=== PATIENT | male | born 1965 | race Caucasian/White ===

== ENCOUNTER 2017-01-08 08:00 | Observation (INO) | payer BC ==
[~2017-01-08] VITALS: Ht 185.4 cm; Wt 82.9 kg
[~2017-01-08 08:00] MED LIST: FLUT0.15 NAE
[2017-01-08 08:41] LABS: BASO % 0.2 %; BASO ABS # 0.01 K/uL (0-0.2); COMPLETE YES; EOS % 1.7 %; HEMATOCRIT 40.9 % (42-52); IG% 0.2 %; LYMPH % 21.2 %; LYMPH ABS # 1.37 K/uL (1.2-3.4); MEAN CELL VOLUME 85.9 fL (80-100); MEAN PLATELET VOLUME 10.8 fL (7.4-10.4); MONO % 11.8 %; NEUT % 64.9 %; PLATELET COUNT 173 K/uL (130-400); RED BLOOD COUNT 4.76 M/uL (4.7-6.1); WHITE BLOOD COUNT 6.46 K/uL (4.8-10.8)
[2017-01-08 08:56] LABS: MANUAL MICROSCOPIC REQUIRED? NO; URINE APPEARANCE CLEAR (CLEAR); URINE BILIRUBIN NEG (NEG); URINE COLOR YELLOW; URINE NITRITE NEG (NEG); UROBILINOGEN NEG (NEG)
[2017-01-08 08:57] LABS: REVIEW REQ? NO
[2017-01-08 08:58] LABS: BUN/CREATININE RATIO 11.8 (10-20); CALCIUM 9.4 mg/dl (8.5-10.1); CREATININE 1.1 mg/dl (0.60-1.40); POTASSIUM 3.8 mmol/L (3.5-5.1)
--- NOTE | 2017-01-08 09:02 | DIAGNOSTIC IMAGING REPORT ---
CT OF THE HEAD WITHOUT CONTRAST CLINICAL HISTORY: Lightheadedness with collapse. COMPARISON STUDY: No previous studies for comparison. CT DOSE: 614.27 mGy.cm TECHNIQUE: Helical axial images of the head were obtained without IV contrast. Automated exposure control was utilized for the study. FINDINGS: No acute intracranial hemorrhage, midline shift or mass effect is present. Ventricular system is normal. Basilar cisterns are patent. There are no extra-axial collections. Mohan-white differentiation is maintained. There are no findings to suggest acute dural sinus thrombosis or acute territorial infarct. There is no calvarial fracture. Visualized portions of the sinuses and mastoid air cells are clear. IMPRESSION: No acute intracranial findings. Electronically signed by: Domingo Gipson M.D. 01/08/2017 9:01 AM Dictated Date/Time: 01/08/2017 8:58 AM
--- NOTE | 2017-01-08 09:02 | DIAGNOSTIC IMAGING REPORT ---
CHEST ONE VIEW PORTABLE HISTORY: 51 years Male lightheadness with collapse COMPARISON: 09/12/2015. TECHNIQUE: Portable upright AP view of the chest FINDINGS: Cardiomediastinal and hilar silhouettes are within normal limits. There is no pneumothorax, pleural effusion or focal airspace consolidation. Mild pleural parenchymal scarring of the right lung apex is redemonstrated. There is no overt pulmonary edema. The bones are grossly intact. IMPRESSION: No acute cardiopulmonary process. The above report was generated using voice recognition software. It may contain grammatical, syntax or spelling errors. Electronically signed by: Charlie Santos M.D. 01/08/2017 9:00 AM Dictated Date/Time: 01/08/2017 8:54 AM
[2017-01-08 09:08] LABS: THYROID STIMULATING HORMONE 2.84 uIu/ml (0.300-4.500)
--- NOTE | 2017-01-08 10:35 | EMERGENCY ROOM VISIT NOTE ---
ED Visit Note First contact with patient: 08:11 51-year-old male with 2 near-syncopal episodes over the past 2 days. Patient has an unremarkable past medical history. The patient was fully evaluated by Gideon Denny PA-C. Please see his note. I also independently evaluated the patient. Multiple labs, EKG and imaging were evaluated. The patient will require further evaluation in the hospital.
[2017-01-08] MEDS ORDERED: ACETAMINOPHEN 325 MG TAB PO PRN (11:45)
[2017-01-08] MEDS ORDERED: PHARMACIST DISCHARGE MED REC CONSULT PRN (11:45)
[2017-01-08 12:30] VITALS: O2SAT 96; Ht 185.4 cm; Wt 82.9 kg
[2017-01-08] MEDS ORDERED: IV FLUIDS COMPLETED PRN (12:45)
--- NOTE | 2017-01-08 12:56 | History and Physical ---
History & Physical Date & Time of Service: Jan 08, 2017 at 10:34 Chief Complaint: Lightheaded, Dizzy Primary Care Physician: No Doctor, Assigned History of Present Illness Source: patient, family This pt is a 51 yo male with a h/o a Dieulafoy lesion with GI bleed in 08/2015 requiring PRBC transfusion and endoscopic clipping, who presents with 1 day of lightheadedness and dizziness with some room spinning with standing and collapse to the ground on several occasions. 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 His girlfriend states he was talking to her through the episode but did have some trouble finding words. He reports at that time it took him about 15 min to get back up as his whole body felt very fatigued, no focal weakness. Since then, every time he stands or sits up, he feels lightheaded and dizzy. He then had another episode this AM upon getting out of bed where he fell to the floor but again did not pass out. No nausea/ vomiting. He denies chest pain or palpitations, no GI bleeding he is aware of. 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 No fevers. He has felt some generalized fatigue for the last week as well. He has a 4/10 frontal headache that started this morning, as well as some mild tinnitus since last night. No hearing loss. He does have a h/o LBP and neck pain with left arm and leg radiculopathy and is currently seeing a Chiropractor for this through workman's comp--> he does get manipulation of his neck at times but can't recall if he received this at his last Chiropractor visit last week. Labs including CBC, CMP, TSH, troponin in ER were all normal. CXR and Head CT were negative for acute issues, ECG without arrhythmia or signs of ischemia. Orthostatics were negative but he did feel lightheaded when they were performed. He will be admitted for overnight observation to ensure no CVA, no acute occult GI bleeding given h/o massive GI bleed previously, and to r/o cardiac causes of near syncope. Past Medical/Surgical History PMH: Dieulafoy lesion in stomach with massive GI bleed 08/2015 Lower back pain with left lower extremity radiculopathy Chronic cervicalgia with LUE radiculopathy PSH: Discectomy lumbar spine Family History FH: HTN (hypertension) FH: diabetes mellitus FHx: prostate cancer Father-HTN, prostate CA, DMII, [place] in his 50s, pacemaker Mother- from brain CA Sister-DM Brother-prediabetes Social History Smoking Status: Never Smoker Alcohol Use: occasionally (1 beer per month) Drug Use: none Marital Status: in relationship Housing status: lives with significant other (with girlfriend and her children) 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) Multi-Drug Resistant Organisms History of MDRO: No Allergies Coded Allergies: Penicillins (Verified Allergy, Unknown, HAPPENED AT CHILD, 01/08/17) Home Medications No Active Prescriptions or Reported Meds Review of Systems Constitutional: + fatigue, No fever, No chills Eyes: No worsening of vision, No diplopia ENT: + tinnitus, No hearing loss Respiratory: No shortness of breath, No hemoptysis Cardiovascular: No chest pain, No edema, No palpitations Abdomen: No pain, No nausea, No vomiting, No diarrhea, No constipation, No GI bleeding Musculoskeletal: + problem reported (chronic neck and lower back pain), No joint pain Genitourinary - Male: No problem reported Neurologic: + weakness (generalized), + numbness/tingling (intermittently in LUE and LLE for months) Psychiatric: No problem reported Endocrine: + fatigue Hematologic / Lymphatic: No problem reported Integumentary: No rash Allergic / Immunologic: No problem reported Physical Exam Vital Signs Date Time Temp Pulse Resp B/P (MAP) Pulse Ox O2 Delivery O2 Flow Rate FiO2 01/08/17 10:01 118/69 01/08/17 10:00 58 15 96 01/08/17 09:31 122/74 01/08/17 09:30 60 13 97 01/08/17 09:01 112/70 01/08/17 09:00 63 21 118/70 98 01/08/17 08:30 64 14 97 01/08/17 08:15 71 134/70 67 132/73 79 142/78 01/08/17 08:14 72 01/08/17 08:13 142/78 01/08/17 08:04 36.5 71 18 129/77 100 Room Air General Appearance: WD/WN, no apparent distress, + thin Head: normocephalic, atraumatic Eyes: normal inspection, PERRL, EOMI (with nystagmus in all directions), sclerae normal ENT: normal ENT inspection, hearing grossly normal, TMs normal, pharynx normal Neck: supple, no adenopathy, thyroid normal, no JVD, no carotid bruits, trachea midline Respiratory/Chest: lungs clear, normal breath sounds, no respiratory distress, no accessory muscle use Cardiovascular: regular rate, rhythm, no edema, no gallop, no JVD, no murmur, normal peripheral pulses Abdomen/GI: normal bowel sounds, non tender, soft, no organomegaly, no pulsatile mass Back: normal inspection Extremities/Musculoskelatal: normal inspection, no calf tenderness, normal capillary refill, no pedal edema 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: 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, no motor/sensory deficits, alert, normal mood/affect, normal reflexes, oriented x 3, + pertinent finding (normal finger to nose, heel to leslie, rapid alternating hands all normal, Romberg +, Gait not tested) Skin: normal color, warm/dry, no rash (except crmup angiomas on abdomen) Lymphatic: no adenopathy Diagnostics Laboratory Results Results Past 24 Hours Test 01/08/17 08:20 01/08/17 08:44 01/08/17 08:48 Range/Units White Blood Count 6.46 4.8-10.8 K/uL Red Blood Count 4.76 4.7-6.1 M/uL Hemoglobin 14.3 14.0-18.0 g/dL Hematocrit 40.9 42-52 % Mean Corpuscular Volume 85.9 80-100 fL Mean Corpuscular Hemoglobin 30.0 25-34 pg Mean Corpuscular Hemoglobin Concent 35.0 32-36 g/dl Platelet Count 173 130-400 K/uL Mean Platelet Volume 10.8 7.4-10.4 fL Neutrophils (%) (Auto) 64.9 % Lymphocytes (%) (Auto) 21.2 % Monocytes (%) (Auto) 11.8 % Eosinophils (%) (Auto) 1.7 % Basophils (%) (Auto) 0.2 % Neutrophils # (Auto) 4.20 1.4-6.5 K/uL Lymphocytes # (Auto) 1.37 1.2-3.4 K/uL Monocytes # (Auto) 0.76 0.11-0.59 K/uL Eosinophils # (Auto) 0.11 0-0.5 K/uL Basophils # (Auto) 0.01 0-0.2 K/uL RDW Standard Deviation 41.9 36.4-46.3 fL RDW Coefficient of Variation 13.3 11.5-14.5 % Immature Granulocyte % (Auto) 0.2 % Immature Granulocyte # (Auto) 0.01 0.00-0.02 K/uL Sodium Level 139 136-145 mmol/L Potassium Level 3.8 3.5-5.1 mmol/L Chloride Level 106 98-107 mmol/L Carbon Dioxide Level 27 21-32 mmol/L Anion Gap 6.0 3-11 mmol/L Blood Urea Nitrogen 13 7-18 mg/dl Creatinine 1.10 0.60-1.40 mg/dl Est Creatinine Clear Calc Drug Dose 90.8 ml/min Estimated GFR () 90.2 Estimated GFR (Non- 77.9 BUN/Creatinine Ratio 11.8 10-20 Random Glucose 97 70-99 mg/dl Calcium Level 9.4 8.5-10.1 mg/dl Total Bilirubin 0.6 0.2-1 mg/dl Direct Bilirubin 0.1 0-0.2 mg/dl Aspartate Amino Transf (AST/SGOT) 27 15-37 U/L Alanine Aminotransferase (ALT/SGPT) 46 12-78 U/L Alkaline Phosphatase 80 45-117 U/L Total Protein 7.5 6.4-8.2 gm/dl Albumin 3.6 3.4-5.0 gm/dl Thyroid Stimulating Hormone (TSH) 2.840 0.300-4.500 uIu/ml Bedside Troponin I < 0.030 0-0.045 ng/ml Urine Color YELLOW Urine Appearance CLEAR CLEAR Urine pH 7.0 4.5-7.5 Urine Specific [place] 1.010 1.000-1.030 Urine Protein NEG NEG Urine Glucose (UA) NEG NEG Urine Ketones NEG NEG Urine Occult Blood NEG NEG Urine Nitrite NEG NEG Urine Bilirubin NEG NEG Urine Urobilinogen NEG NEG Urine Leukocyte Esterase NEG NEG Diagnostic Radiology All images personally reviewed by ga CHEST ONE VIEW PORTABLE HISTORY: 51 years Male lightheadness with collapse COMPARISON: 09/12/2015. TECHNIQUE: Portable upright AP view of the chest FINDINGS: Cardiomediastinal and hilar silhouettes are within normal limits. There is no pneumothorax, pleural effusion or focal airspace consolidation. Mild pleural parenchymal scarring of the right lung apex is redemonstrated. There is no overt pulmonary edema. The bones are grossly intact. IMPRESSION: No acute cardiopulmonary process. CT OF THE HEAD WITHOUT CONTRAST CLINICAL HISTORY: Lightheadedness with collapse. COMPARISON STUDY: No previous studies for comparison. CT DOSE: 614.27 mGy.cm TECHNIQUE: Helical axial images of the head were obtained without IV contrast. Automated exposure control was utilized for the study. FINDINGS: No acute intracranial hemorrhage, midline shift or mass effect is present. Ventricular system is normal. Basilar cisterns are patent. There are no extra-axial collections. Mohan-white differentiation is maintained. There are no findings to suggest acute dural sinus thrombosis or acute territorial infarct. There is no calvarial fracture. Visualized portions of the sinuses and mastoid air cells are clear. IMPRESSION: No acute intracranial findings. EKG Sinus bradycardia, possible LVH, no ischemic changes Impression Assessment and Plan This pt is a 51 yo male with a h/o a Dieulafoy lesion with GI bleed in 08/2015 requiring PRBC transfusion and endoscopic clipping, who presents with 1 day of lightheadedness and dizziness with some room spinning with standing and collapse to the ground on several occasions. 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 His girlfriend states he was talking to her through the episode but did have some trouble finding words. He reports at that time it took him about 15 min to get back up as his whole body felt very fatigued, no focal weakness. Since then, every time he stands or sits up, he feels lightheaded and dizzy. He then had another episode this AM upon getting out of bed where he fell to the floor but again did not pass out. No nausea/ vomiting. He denies chest pain or palpitations, no GI bleeding he is aware of. 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 No fevers. He has felt some generalized fatigue for the last week as well. He has a 4/10 frontal headache that started this morning, as well as some mild tinnitus since last night. No hearing loss. He does have a h/o LBP and neck pain with left arm and leg radiculopathy and is currently seeing a Chiropractor for this through workman's comp--> he does get manipulation of his neck at times but can't recall if he received this at his last Chiropractor visit last week. Labs including CBC, CMP, TSH, troponin in ER were all normal. CXR and Head CT were negative for acute issues, ECG without arrhythmia or signs of ischemia. Orthostatics were negative but he did feel lightheaded when they were performed. He will be admitted for overnight observation to ensure no CVA, no acute occult GI bleeding given h/o massive GI bleed previously, and to r/o cardiac causes of near syncope. Dizziness, fatigue--> Does have nystagmus on exam but mixed picture between vertigo and near-syncope based on symptoms alone, with normal orthostatics. The differential includes TIA/CVA, BPPV, cardiac arrhythmia, Lyme disease, or early occult GI bleed. He has been seeing a Chiropractor and had neck high velocity manipulation which can lead to dissection and CVA -Check MRI brain, MRA head, Carotid Doppler US -Neuro checks -check Lyme titer -neurology consultation appreciated -check ECHO and monitor on telemetry -trend troponin -Appreciate Cardiology consultation, may need halfway event monitoring if no clear etiology for his symptoms is discovered this admission -repeat CBC with next troponin given h/o massive GI bleed and high risk of recurrence with Dieulafoy lesions -holding off on ASA for now unless confirmed CVA due to h/o massive GI bleed and high risk of recurrence Chronic neck and lower back pain with radiculopathy-no focal neuro deficits on exam today -continue f/u as outpt Proph-SCDs only given h/o GI bleeding Dispo-PT/OT evals, hopefully to home in 1-2 days after workup complete and safe with ambulation Needs Nurse Navigator to assist with finding a PCP that takes his insurance Level of Care Telemetry Resuscitation Status FULL RESUSCITATION VTE Prophylaxis VTE Risk Assessment Done? Y/N: Yes Risk Level: Low Given or contraindicated: SCD's Social Service Consult None Apply
--- NOTE | 2017-01-08 13:40 | DIAGNOSTIC IMAGING REPORT ---
MR ANGIOGRAPHY OF THE [place] NO CONTRAST CLINICAL HISTORY: Stroke, dizziness, lightheadedness. Headache. COMPARISON STUDY: None. A 3-D [id number] MR angiographic sequence of the [place] was performed. Both the source and projection images were reviewed. There is no evidence of major intracranial branch occlusion. There is no evidence of intracranial stenosis. There are no lesions suspicious for aneurysm. IMPRESSION: Unremarkable MR angiography of the [place]. Electronically signed by: Todd Saldivar M.D. 01/08/2017 1:39 PM Dictated Date/Time: 01/08/2017 1:37 PM
[2017-01-08] MEDS ORDERED: GADAVIST IV PRN (13:45)
[2017-01-08 13:51] LABS: ESTIMATED AVERAGE GLUCOSE 126 mg/dl; HA1C FLAG Normal (Normal)
--- NOTE | 2017-01-08 13:57 | DIAGNOSTIC IMAGING REPORT ---
MRI OF THE BRAIN WITHOUT AND WITH IV CONTRAST CLINICAL HISTORY: Evaluate for stroke. Lightheaded. Dizzy. COMPARISON STUDY: Head CT January 08, 2017. TECHNIQUE: Utilizing a 1.5 Sheree magnet and dedicated coil, multiplanar, multiecho imaging of the brain was performed pre and postcontrast administration. IV administration of 7.7 mL of Gadavist contrast was uneventful. FINDINGS: There are no areas of restricted diffusion. No acute intracranial hemorrhage, midline shift or mass effect is present. Brain volume is normal. Ventricular system is normal. Basilar cisterns are patent. There are no extra axial collections. Flow-voids for the major intracranial vessels are present. There are no intracranial masses or areas of pathologic enhancement. Scattered small white matter T2 hyperintense foci suggest minimal small vessel disease. Calvarial signal is normal. Orbits are unremarkable. There is no fluid within the mastoid air cells. No abnormalities are identified within the internal auditory canals on this nondedicated exam. IMPRESSION: 1. No acute intracranial findings. 2. No intracranial mass or pathologic enhancement. 3. Minimal small vessel disease. Electronically signed by: Domingo Gipson M.D. 01/08/2017 1:56 PM Dictated Date/Time: 01/08/2017 1:50 PM
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
[2017-01-08 14:17] LABS: LYME DISEASE AB IGG NEG (NEG); LYME DISEASE AB IGM NEG (NEG)
[2017-01-08 14:30] VITALS: BP 151/75; PULSE 59; TEMP 36.5; O2SAT 100
[2017-01-08 15:25] VITALS: BP 123/76; PULSE 58; TEMP 36.4; O2SAT 100
--- NOTE | 2017-01-08 15:32 | EMERGENCY ROOM VISIT NOTE ---
ED Visit Note First contact with patient: 08:11 Chief Complaint: Dizziness. History of Present Illness: Mr. Stack is a 51-year-old white male who ambulates into the ED accompanied by his girlfriend complaining of dizziness. Historically patient reports he's had a previous GI bleed in 2016 without recurrence. Patient reports over the last 2-3 days he has been having generalized fatigue; he reports this is abnormal because usually he is very active and anxious to get his normal work done. 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 He reports when he attempted to stand he became lightheaded ankle lapsed onto the floor. His girlfriend observed this incident and reported he did not strike his head or have a loss of consciousness ball while on the floor his speech became slightly mumbled and he had difficulty finding words to communicate. He reports he also had difficulty getting up from the floor because he continued to have lightheadedness. Since that time he reports whenever he has positional changes from the lying to sitting or sitting to standing position he has a 10 to 20 second episode of lightheadedness and then he has full resolution of the lightheadedness. This morning while getting out of bed he had a similar episode of collapsing to the floor and had difficulty standing because of his lightheadedness. His girlfriend became very concerned and forced him to come to the hospital for further evaluation and care. He has not taken any medications for his symptoms and denies any associated symptoms including fevers, chills, sweats, skin eruptions, skin color changes, dizziness, visual changes, hearing changes, difficulty speaking, difficulty swallowing, difficulty ambulating/coordinating body movements, neck pain/ stiffness, recent upper respiratory tract symptoms, headache, chest pain, shortness of breath, palpitations, previous clots, claudication, cramping, recent surgery/inactivity/extended travel, extremity weakness/numbness/tingling , rectal bleeding, black/tarry stools, hematuria, urinary symptoms, easy bruising, easy bleeding. Review of Systems: As noted above in history of present illness. All body systems were reviewed and found to be negative as noted above. Past Medical History: As noted previously, unspecified heart murmur from a child , chronic neck and back pain. Current Medications: Patient denies. Allergies to Medications: Penicillin. Social History: Patient is currently employed; he lives with his girlfriend and feels safe in his home environment; he denies tobacco use and admits to social alcohol use. Physical Examination: Vital Signs: Date Time Temp Pulse Resp B/P (MAP) Pulse Ox O2 Delivery O2 Flow Rate FiO2 01/08/17 12:31 118/75 01/08/17 12:30 96 Room Air 01/08/17 12:15 72 01/08/17 12:11 62 20 01/08/17 12:06 63 22 01/08/17 12:01 126/77 01/08/17 11:36 64 01/08/17 11:31 116/70 01/08/17 11:06 66 18 01/08/17 11:01 137/77 01/08/17 10:36 63 15 01/08/17 10:06 57 16 96 01/08/17 10:01 118/69 01/08/17 10:00 58 15 96 01/08/17 09:31 122/74 01/08/17 09:30 60 13 97 01/08/17 09:01 112/70 01/08/17 09:00 63 21 118/70 98 01/08/17 08:30 64 14 97 01/08/17 08:15 71 134/70 67 132/73 79 142/78 01/08/17 08:14 72 01/08/17 08:13 142/78 01/08/17 08:04 36.5 71 18 129/77 100 Room Air Negative orthostatic vital signs. GENERAL: 51-year-old male in no acute distress, nontoxic-appearing, afebrile and hemodynamically stable. NEUROLOGICAL: Awake, alert and oriented to person, place and time. Answering questions appropriately and following commands. Normal gait. Good hand eye coordination. No focal motor or sensory deficits. Cranial nerves II through XII grossly intact. Normal rapid alternate movements of the hands and fingers. Good short-term and long-term recall. SKIN: Warm, dry and pink. No soft tissue eruptions or trauma noted. HEENT: Atraumatic and normocephalic. Skull: No bony deformity, bony tenderness , swelling or ecchymosis. No raccoon's eyes or jain signs. No drainage in the ears of the nostril; no hemotympanum. PERRLA. EOMI without nystagmus. Sclera white and conjunctiva pink. Oral cavity moist and pink. Airway patent. Pharynx is nonerythematous or edematous. Speech normal. No lymphadenopathy. Trachea midline. No jugular venous distention. No carotid bruits. BACK: No tenderness over the bony cervical, thoracic or lumbar spine. Full range of motion of the cervical spine. No CVA tenderness. THORAX: Lungs sounds are clear to auscultation and equal bilaterally with symmetrical chest wall. No wheezing, rales or rhonchi. No crepitus, tenderness , subcutaneous air or deformities noted. HEART: Regular rate and rhythm. No gallops, rubs or murmurs are appreciated. PMI is not displaced. No lifts, heaves or thrills. ABDOMEN: Flat, soft and nontender. Positive bowel sounds in all quadrants. No masses, guarding, rigidity or organomegaly. EXTREMITIES: Moves all extremities well on command and with purpose. All distal neurovascular statuses are intact and equal bilaterally. No calf tenderness or cords. ED Course: Patient is assessed as noted above. Patient's medications were reviewed. Laboratory Testing: Test 01/08/17 08:20 01/08/17 08:44 01/08/17 08:48 Range/Units White Blood Count 6.46 4.8-10.8 K/uL Red Blood Count 4.76 4.7-6.1 M/uL Hemoglobin 14.3 14.0-18.0 g/dL Hematocrit 40.9 42-52 % Mean Corpuscular Volume 85.9 80-100 fL Mean Corpuscular Hemoglobin 30.0 25-34 pg Mean Corpuscular Hemoglobin Concent 35.0 32-36 g/dl Platelet Count 173 130-400 K/uL Mean Platelet Volume 10.8 7.4-10.4 fL Neutrophils (%) (Auto) 64.9 % Lymphocytes (%) (Auto) 21.2 % Monocytes (%) (Auto) 11.8 % Eosinophils (%) (Auto) 1.7 % Basophils (%) (Auto) 0.2 % Neutrophils # (Auto) 4.20 1.4-6.5 K/uL Lymphocytes # (Auto) 1.37 1.2-3.4 K/uL Monocytes # (Auto) 0.76 0.11-0.59 K/uL Eosinophils # (Auto) 0.11 0-0.5 K/uL Basophils # (Auto) 0.01 0-0.2 K/uL RDW Standard Deviation 41.9 36.4-46.3 fL RDW Coefficient of Variation 13.3 11.5-14.5 % Immature Granulocyte % (Auto) 0.2 % Immature Granulocyte # (Auto) 0.01 0.00-0.02 K/uL Sodium Level 139 136-145 mmol/L Potassium Level 3.8 3.5-5.1 mmol/L Chloride Level 106 98-107 mmol/L Carbon Dioxide Level 27 21-32 mmol/L Anion Gap 6.0 3-11 mmol/L Blood Urea Nitrogen 13 7-18 mg/dl Creatinine 1.10 0.60-1.40 mg/dl Est Creatinine Clear Calc Drug Dose 90.8 ml/min Estimated GFR () 90.2 Estimated GFR (Non- 77.9 BUN/Creatinine Ratio 11.8 10-20 Random Glucose 97 70-99 mg/dl Estimated Average Glucose 126 mg/dl Hemoglobin A1c 6.0 4.5-5.6 % Calcium Level 9.4 8.5-10.1 mg/dl Total Bilirubin 0.6 0.2-1 mg/dl Direct Bilirubin 0.1 0-0.2 mg/dl Aspartate Amino Transf (AST/SGOT) 27 15-37 U/L Alanine Aminotransferase (ALT/SGPT) 46 12-78 U/L Alkaline Phosphatase 80 45-117 U/L Total Protein 7.5 6.4-8.2 gm/dl Albumin 3.6 3.4-5.0 gm/dl Thyroid Stimulating Hormone (TSH) 2.840 0.300-4.500 uIu/ml Lyme Disease IgG Antibody NEG NEG Lyme Disease IgM Antibody NEG NEG Bedside Troponin I < 0.030 0-0.045 ng/ml Urine Color YELLOW Urine Appearance CLEAR CLEAR Urine pH 7.0 4.5-7.5 Urine Specific [place] 1.010 1.000-1.030 Urine Protein NEG NEG Urine Glucose (UA) NEG NEG Urine Ketones NEG NEG Urine Occult Blood NEG NEG Urine Nitrite NEG NEG Urine Bilirubin NEG NEG Urine Urobilinogen NEG NEG Urine Leukocyte Esterase NEG NEG EKG: Was read by myself and reviewed with Dr. Morton; shows sinus bradycardia with a ventricular rate of 59 bpm. Borderline left ventricular hypertrophy. No acute ST changes indicating ischemia, injury or infarction. No EKGs consistent with preexcitement syndromes. This was compared to previous from August 2015 in no acute changes were noted. Chest X-Ray: Was read by myself and the radiologist showing no acute infiltrates , effusions or pneumothorax. Normal heart silhouette and bony anatomy. No free air under the diaphragm. Head CT: Was reviewed by myself and read by the radiologist showing no acute intracranial abnormalities, mass effect or skull fractures. Patient was reassessed multiple times during his stay in the emergency department. Patient's case was reviewed with Dr. Morton; he independently assessed the patient where agreed on diagnostic approach, treatment, disposition and plan. Patient's case was consulted with case management and Dr. Elias Madrigal, hospitalist for medical observation. Patient was educated about today's findings. Clinical Impression: Near syncope with collapse. Decision-Making: Initially my differential diagnosis I considered GI bleed/ anemia, arrhythmia, orthostatic hypotension, pulmonary embolism, acute coronary syndrome, intercranial bleed and other causes. Disposition and Plan: Patient will be brought in the hospital for observation by the hospitalist; please see their notes and orders for final disposition and plan.
--- NOTE | 2017-01-08 15:56 | ECHOCARDIOGRAM REPORT ---
*NOTICE TO RECEIVING CONSTITUTION PARTY AGENCY This information is strictly Confidential and protected under [place] law. [place] law prohibits you from making any further disclosure of this information unless further disclosure is expressly permitted by the written consent of the person to whom it pertains or is authorized by law. A general authorization for the release of medical or other information is not sufficient for this purpose. Hospital accepts no responsibility if the information is made available to any other person, INCLUDING THE PATIENT. Interpretation Summary * Name: VICKY HERNANDEZ Study Date: 01/08/2017 02:45 PM BP: 151/75 mmHg * Patient Location: C.2T\S\S241\S\2 HR: 59 * : 1965 (M/d/yyyy) Gender: Male Height: 73 in * Age: 51 yrs Ethnicity: [place] Weight: 183 lb * Ordering Physician: Josie Madrigal * Referring Physician: Self, Referred * Performed By: Marlene Goetz RDCS * * Reason For Study: CEREBRAL ISCHEMIA/ EMBOLUS * BSA: 2.1 m2 * Normal transthoracic echocardiogram. * No cardiac source of emboli noted. * -- Conclusions -- * Left ventricular systolic function is normal. Procedure Details * A saline contrast injection was performed to assess for cardiac shunting. * The injection was performed through an intravenous line in the right arm. * The attending nurse who injected the saline contrast was FLY KEENAN RN. * A total of 20 cc of agitated saline was given. Left Ventricle * The left ventricle is normal in size. * There is normal left ventricular wall thickness. * Ejection Fraction = 55-60%. * Left ventricular systolic function is normal. Right Ventricle * The right ventricle is normal in size and function. Atria * The left atrial size is normal. * Right atrial size is normal. Mitral Valve * The mitral valve anatomy is normal. * Significant mitral regurgitation is absent. Tricuspid Valve * The tricuspid valve is not well visualized, but is grossly normal. * Significant tricuspid regurgitation is absent. Aortic Valve * The aortic valve is normal in structure and function. * The aortic valve is trileaflet. * No hemodynamically significant valvular aortic stenosis. * No aortic regurgitation is present. Pericardium/Pleural * There is no pericardial effusion. Great Vessels * Normal inferior vena cava diameter and respiratory variation suggests normal central venous pressure. MMode 2D Measurements and Calculations IVSd 1.1 cm IVSs 1.7 cm LVIDd 4.7 cm LVIDs 3.3 cm LVPWd 0.89 cm LVPWs 1.5 cm IVS/LVPW 1.2 FS 29.3 % EDV(Teich) 103.1 ml ESV(Teich) 45.3 ml EF(Teich) 56.1 % EDV(cubed) 104.8 ml ESV(cubed) 37.1 ml EF(cubed) 64.6 % % IVS thick 58.2 % % LVPW thick 69.5 % LV mass(C)d 161.4 grams LV mass(C)dI 77.9 grams/m\S\2 LV mass(C)s 203.1 grams LV mass(C)sI 98.0 grams/m\S\2 SV(Teich) 57.8 ml SI(Teich) 27.9 ml/m\S\2 SV(cubed) 67.7 ml SI(cubed) 32.7 ml/m\S\2 LVAd ap4 33.7 cm\S\2 LVLd ap4 9.1 cm EDV(MOD-sp4) 105.0 ml LVAs ap4 20.1 cm\S\2 LVLs ap4 8.0 cm ESV(MOD-sp4) 42.1 ml EF(MOD-sp4) 59.9 % LVAd ap2 32.6 cm\S\2 LVLd ap2 9.3 cm EDV(MOD-sp2) 98.1 ml LVAs ap2 16.7 cm\S\2 LVLs ap2 6.7 cm ESV(MOD-sp2) 35.9 ml EF(MOD-sp2) 63.4 % SV(MOD-sp4) 62.9 ml SI(MOD-sp4) 30.4 ml/m\S\2 SV(MOD-sp2) 62.2 ml SI(MOD-sp2) 30.0 ml/m\S\2 Doppler Measurements and Calculations MV E max candice 62.6 cm/sec MV A max candice 50.4 cm/sec MV E/A 1.2 MV dec time 0.27 sec Ao V2 max 114.0 cm/sec Ao max PG 5.2 mmHg Ao max PG (full) 1.5 mmHg LV V1 max PG 3.7 mmHg LV V1 max 95.6 cm/sec
--- NOTE | 2017-01-08 16:03 | DIAGNOSTIC IMAGING REPORT ---
CAROTID DOPPLER NECK ART CLINICAL HISTORY: 51 years-old Male presenting with Stroke. TECHNIQUE: Real-time grayscale and color and spectral Doppler ultrasound imaging of the bilateral carotid arteries was performed. NASCET criteria was used in evaluating this study. COMPARISON: None. FINDINGS: Right: Common carotid: Patent. Peak systolic velocity 122-144 cm/s. Carotid bulb: Patent. Peak systolic velocity 54 cm/s. Internal carotid artery: Patent. Peak systolic velocity 49-61 cm/s. External carotid artery: Patent. Peak systolic velocity 66 cm/s. Vertebral artery: Patent with normal directional flow. Peak systolic velocity 50 cm/s. Systolic ratio: 0.4 Left: Common carotid: Patent. Peak systolic velocity 158-186 cm/s. Carotid bulb: Patent. Peak systolic velocity 58 cm/s. Internal carotid artery: Patent. Peak systolic velocity 49-91 cm/s. External carotid artery: Patent. Peak systolic velocity 59 cm/s. Vertebral artery: Patent with normal directional flow. Peak systolic velocity 72 cm/s. Systolic ratio: 0.5 Reference ranges: Normal ICA peak systolic velocity less than 125 cm/s. Normal ICA peak systolic velocity to common carotid artery velocity ratio is less than 2. Normal ICA end-diastolic velocity less than 40. IMPRESSION: No hemodynamically significant stenosis seen within the carotid arteries. Electronically signed by: Heath Maloney M.D. 01/08/2017 4:02 PM Dictated Date/Time: 01/08/2017 3:53 PM
--- NOTE | 2017-01-08 17:34 | Cardiology Consultation ---
Cardiology Consultation Date of Consultation: Jan 08, 2017. Requesting Physician: Rohan Reason for Consultation: dizziness Pt evaluation today including: conversation w/ patient, physical exam, chart review, lab review, review of studies, conversation w/ attending History of Present Illness Patient is a 51-year-old gentleman without a known cardiac history who experienced 2 episodes of severe dizziness over the past 24 hours. Patient states that yesterday morning when awakening from bed he sat up in experienced a very severe episode of dizziness and lightheadedness. This was not described as vertigo. He did not feel as if he were presyncopal. This was associated with a sense of mild diaphoresis and nausea. The symptoms eventually resolved without a change in position and patient was able complete remainder of his activities that day. He did report feeling significantly fatigued for a good portion of the morning. He was not able to report any symptoms of palpitations or racing heartbeat during this episode. The following morning the patient experienced a 2nd episode which was similar in nature. Due to the recurrent nature of the episodes the patient eventually sought medical attention at [facility]. In general the patient is active individual who was accustomed routine and strenuous activity. He denies symptoms associated with activity. He cannot recall suffering a syncopal episode in the past. He is not recall palpitations. He has no symptoms of vertigo. Denies any limiting breathing problems or chest pains. He has not felt ill recently. He has maintain good hydration. He has maintained his usual diet. Patient does have a history of gastrointestinal hemorrhage but did not report any symptoms of bleeding recently no dark stools or blood in the stool. Currently patient is feeling well he is able change positions and walk around his room without recurrent symptoms of dizziness. He did report a very brief episode of dizziness after sitting up to transfer to his wheelchair after his carotid ultrasound. 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 Patient does use smokeless tobacco. Review of Systems Constitutional: + see HPI Respiratory: + see HPI Cardiac: + see HPI Abdomen: + see HPI Male : + see HPI Neurologic: + see HPI Heme: + see HPI Endo: + see HPI Skin: + see HPI All Other Systems: Reviewed and Negative Allergies Coded Allergies: Penicillins (Verified Allergy, Unknown, HAPPENED AT CHILD, 01/08/17) Medications Current Inpatient Medications Medications (Trade) Dose Ordered Sig/Peewee Route Start Time Stop Time Status Last Admin Dose Admin Acetaminophen (Tylenol Tab) 650 mg Q4H PRN PO 01/08/17 11:45 02/07/17 11:44 Miscellaneous Information (Pharmacist Discharge Med Rec Consult) 1 ea UD PRN N/A 01/08/17 11:45 02/07/17 11:44 Miscellaneous (Iv Fluids Completed) 1 ea PRN PRN N/A 01/08/17 12:45 01/08/18 12:44 Gadobutrol (Gadavist) 7.7 mmol UD PRN IV 01/08/17 13:45 01/12/17 13:44 Physical Exam Vital Signs Past 12 Hours Date Time Temp Pulse Resp B/P (MAP) Pulse Ox O2 Delivery O2 Flow Rate FiO2 01/08/17 16:00 Room Air 01/08/17 15:25 36.4 58 20 123/76 (92) 100 Room Air 01/08/17 14:30 36.5 59 16 151/75 (100) 100 Room Air 01/08/17 12:46 59 17 01/08/17 12:41 62 01/08/17 12:31 118/75 01/08/17 12:30 96 Room Air 01/08/17 12:15 72 01/08/17 12:11 62 20 01/08/17 12:06 63 22 01/08/17 12:01 126/77 01/08/17 11:36 64 01/08/17 11:31 116/70 01/08/17 11:06 66 18 01/08/17 11:01 137/77 01/08/17 10:36 63 15 01/08/17 10:06 57 16 96 01/08/17 10:01 118/69 01/08/17 10:00 58 15 96 01/08/17 09:31 122/74 01/08/17 09:30 60 13 97 01/08/17 09:01 112/70 01/08/17 09:00 63 21 118/70 98 01/08/17 08:30 64 14 97 01/08/17 08:15 71 134/70 67 132/73 79 142/78 01/08/17 08:14 72 01/08/17 08:13 142/78 01/08/17 08:04 36.5 71 18 129/77 100 Room Air The patient is alert and oriented. Mood and affect appeared normal. He answered all questions appropriately. HEENT: Pupils are equal and reactive to light and accommodation. Extraocular movements are intact. The sclerae are anicteric. Neuro: Cranial nerves intact Neck: Patient's neck is supple. He has palpable carotid pulses bilaterally without bruits on auscultation. There is no evidence of jugular venous distention. The thyroid is not enlarged. Lungs: Clear to auscultation bilaterally. He has good air movement without use of accessory muscles. No rales wheezes or rhonchi. Cardiac: Heart demonstrates a regular rate and rhythm. Normal S1 and S2. No murmurs on examination. Pulses: The patient has palpable radial pulses bilaterally that are equal in intensity Extremities: There was no evidence of hypoperfusion. There is no cyanosis or clubbing. There is no edema. Skin: I did not appreciate any rashes on examination today. Data Laboratory Results: Last 24 Hours Test 01/08/17 08:20 01/08/17 08:44 01/08/17 08:48 01/08/17 14:18 White Blood Count 6.46 K/uL Red Blood Count 4.76 M/uL Hemoglobin 14.3 g/dL Hematocrit 40.9 % Mean Corpuscular Volume 85.9 fL Mean Corpuscular Hemoglobin 30.0 pg Mean Corpuscular Hemoglobin Concent 35.0 g/dl Platelet Count 173 K/uL Mean Platelet Volume 10.8 fL Neutrophils (%) (Auto) 64.9 % Lymphocytes (%) (Auto) 21.2 % Monocytes (%) (Auto) 11.8 % Eosinophils (%) (Auto) 1.7 % Basophils (%) (Auto) 0.2 % Neutrophils # (Auto) 4.20 K/uL Lymphocytes # (Auto) 1.37 K/uL Monocytes # (Auto) 0.76 K/uL Eosinophils # (Auto) 0.11 K/uL Basophils # (Auto) 0.01 K/uL RDW Standard Deviation 41.9 fL RDW Coefficient of Variation 13.3 % Immature Granulocyte % (Auto) 0.2 % Immature Granulocyte # (Auto) 0.01 K/uL Sodium Level 139 mmol/L Potassium Level 3.8 mmol/L Chloride Level 106 mmol/L Carbon Dioxide Level 27 mmol/L Anion Gap 6.0 mmol/L Blood Urea Nitrogen 13 mg/dl Creatinine 1.10 mg/dl Est Creatinine Clear Calc Drug Dose 90.8 ml/min Estimated GFR () 90.2 Estimated GFR (Non- 77.9 BUN/Creatinine Ratio 11.8 Random Glucose 97 mg/dl Estimated Average Glucose 126 mg/dl Hemoglobin A1c 6.0 % Calcium Level 9.4 mg/dl Total Bilirubin 0.6 mg/dl Direct Bilirubin 0.1 mg/dl Aspartate Amino Transf (AST/SGOT) 27 U/L Alanine Aminotransferase (ALT/SGPT) 46 U/L Alkaline Phosphatase 80 U/L Total Protein 7.5 gm/dl Albumin 3.6 gm/dl Thyroid Stimulating Hormone (TSH) 2.840 uIu/ml Lyme Disease IgG Antibody NEG Lyme Disease IgM Antibody NEG Bedside Troponin I < 0.030 ng/ml Urine Color YELLOW Urine Appearance CLEAR Urine pH 7.0 Urine Specific [place] 1.010 Urine Protein NEG Urine Glucose (UA) NEG Urine Ketones NEG Urine Occult Blood NEG Urine Nitrite NEG Urine Bilirubin NEG Urine Urobilinogen NEG Urine Leukocyte Esterase NEG Imaging: I reviewed the patient's imaging studies including his CT scans, MRI reports, carotid ultrasound and echocardiogram. All of these were normal. EKG: Normal Telemetry reviewed: No arrhythmia. Assessment & Plan Dizziness: Positional nature of the patient's dizziness suggests an element of vestibular dysfunction. There is a possibility of postural orthostatic tachycardia syndrome or simple orthostatic intolerance. However the episodes themselves were fairly isolated and he has not had symptoms at other times. He did not report a sense of palpitations. Patient was not monitored during any of these episodes or during his brief episode today. With a normal echocardiogram and EKG he likely have a benign form of dizziness if indeed this is cardiac in nature. He is currently feeling well without symptoms. I think that provocative testing may provide some additional information. Tilt-table testing would be easy to perform and could induce I recurrence of his symptoms. This would allow us to monitor his heart rate and blood pressure during the episodes and determine if it is vagally mediated. It also allow us to exclude POTS or orthostatic intolerance. The absence of recurrent symptoms or episodes on tilt testing, outpatient ambulatory EKG monitoring can be considered.
[2017-01-08 18:49] LABS: BASO % 0.3 %; BASO ABS # 0.02 K/uL (0-0.2); COMPLETE YES; EOS % 1.3 %; HEMATOCRIT 40.8 % (42-52); IG% 0.4 %; LYMPH % 19.2 %; LYMPH ABS # 1.38 K/uL (1.2-3.4); MEAN CELL VOLUME 85.5 fL (80-100); MEAN CORPUSCULAR HEMOGLOBIN 29.4 pg (25-34); MEAN CORPUSCULAR HGB CONC 34.3 g/dl (32-36); MEAN PLATELET VOLUME 10.8 fL (7.4-10.4); MONO % 10.7 %; NEUT % 68.1 %; PLATELET COUNT 171 K/uL (130-400); RED BLOOD COUNT 4.77 M/uL (4.7-6.1); WHITE BLOOD COUNT 7.17 K/uL (4.8-10.8)
[2017-01-08 18:54] VITALS: BP 138/69; PULSE 58; TEMP 36.4; O2SAT 98
[2017-01-08 18:57] LABS: PROTHROMBIN TIME (PATIENT) 11.1 SECONDS (9.0-12.0)
[2017-01-08 19:15] LABS: CKMB/CK RATIO 0.9 (0-3.0)
[2017-01-08 23:50] VITALS: BP 127/68; PULSE 58; TEMP 36.5; O2SAT 99
[2017-01-09 02:27] LABS: CKMB/CK RATIO 1.1 (0-3.0)
[2017-01-09 04:08] VITALS: BP 118/65; PULSE 64; TEMP 36.4; O2SAT 97
[2017-01-09 07:02] VITALS: BP 111/67; PULSE 58; TEMP 36.4; O2SAT 95
[2017-01-09 07:22] LABS: BASO % 0.3 %; BASO ABS # 0.02 K/uL (0-0.2); COMPLETE YES; EOS % 2.3 %; HEMATOCRIT 42.8 % (42-52); IG% 0.2 %; LYMPH % 22.3 %; LYMPH ABS # 1.43 K/uL (1.2-3.4); MEAN CORPUSCULAR HEMOGLOBIN 28.7 pg (25-34); MEAN CORPUSCULAR HGB CONC 32.9 g/dl (32-36); MONO % 12.3 %; NEUT % 62.6 %; PLATELET COUNT 187 K/uL (130-400); RED BLOOD COUNT 4.92 M/uL (4.7-6.1); WHITE BLOOD COUNT 6.42 K/uL (4.8-10.8)
[2017-01-09 08:00] LABS: BUN/CREATININE RATIO 12.4 (10-20); CALCIUM 9.1 mg/dl (8.5-10.1); CREATININE 1.2 mg/dl (0.60-1.40)
[2017-01-09 08:03] LABS: CHOLESTEROL/HDL RATIO 3.5
--- NOTE | 2017-01-09 09:18 | Neurology Consultation ---
Neurology Consultation Date of Consultation: Jan 09, 2017. Attending Physician: Josie Madrigal MD Primary Care Physician: No Doctor, Assigned Reason for Consultation: Patient for dizziness rule out stroke History of Present Illness Source: patient, hospital records This is a 51-year-old male who presents with new onset dizziness. Reports started Friday. He reports he a total of 3 episodes last between yesterday after his ultrasound. Describes his dizziness quality as "all the above". Mostly describes it as provoked by standing or sitting up quickly such as getting up in the middle the night to go to the bathroom. He denies that it occurs laying down. Mostly describes it as dizziness like he is going to pass out. Rarely reports that there is any sense of movement associated with the dizziness. No typical vertigo symptoms. Episodes seem to last seconds to minutes. Reports that during the first episode he had trouble with his speech. No specific aphasia. No focal neurological deficits. No double vision or loss of vision other than vision going black with the dizziness in general. He reports that with the episodes he feels like his pass out and has to shut his eyes. He is never had any episodes like this previously. He denies any chest pain or shortness of breath. Denies being sweaty or diaphoretic. Family member does report that it looks like all the color drains from his face during an episode. He feels generally weak. He feels like he's had decreased energy over the last couple of days. He denies any illness or sick symptoms. He reports some chronic numbness of the back and left greater than right foot due to lumbar spinal disease. No new numbness or weakness. Labs were reviewed and included unremarkable CBC, complete metabolic panel, TSH and Lyme. MRI of the brain report and images reviewed by myself. Minimal T2 hyperintensities in the subcortical white matter. Overall appears normal for age. No signs of strokes. MRA of the head was unremarkable Ultrasound of the carotids was unremarkable there is no critical stenosis Past Medical/Surgical History Medical Problems: (1) GI bleed Status: Acute History of ledieulafoy lesion and GI bleed in 2016, low back pain with left lower extremity radiculopathy, and neck pain with left upper extremity radiculopathy History of lumbar discectomy Family History Mother with brain cancer, dad with prostate cancer, hypertension, diabetes, CAD in the family Social History Patient is normally independent in his activities of daily living. Uses snuff. Occasional alcohol use. 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) Allergies Coded Allergies: Penicillins (Verified Allergy, Unknown, HAPPENED AT CHILD, 01/08/17) Current Inpatient Medications Current Inpatient Medications Medications (Trade) Dose Ordered Sig/Peewee Route Start Time Stop Time Status Last Admin Dose Admin Acetaminophen (Tylenol Tab) 650 mg Q4H PRN PO 01/08/17 11:45 02/07/17 11:44 01/09/17 07:34 650 MG Miscellaneous Information (Pharmacist Discharge Med Rec Consult) 1 ea UD PRN N/A 01/08/17 11:45 02/07/17 11:44 Miscellaneous (Iv Fluids Completed) 1 ea PRN PRN N/A 01/08/17 12:45 01/08/18 12:44 Gadobutrol (Gadavist) 7.7 mmol UD PRN IV 01/08/17 13:45 01/12/17 13:44 Review of Systems Complete review of systems otherwise negative except for the above-noted in history of present illness Physical Exam Vital Signs (Past 24 Hrs): Date Time Temp Pulse Resp B/P (MAP) Pulse Ox O2 Delivery O2 Flow Rate FiO2 01/09/17 07:02 36.4 58 18 111/67 (82) 95 Room Air 01/09/17 04:08 36.4 64 20 118/65 (82) 97 Room Air 01/09/17 04:00 Room Air 01/08/17 23:59 Room Air 01/08/17 23:50 36.5 58 18 127/68 (87) 99 Room Air 01/08/17 20:00 Room Air 01/08/17 18:54 36.4 58 138/69 (92) 98 Room Air 01/08/17 16:00 Room Air 01/08/17 15:25 36.4 58 20 123/76 (92) 100 Room Air 01/08/17 14:30 36.5 59 16 151/75 (100) 100 Room Air 01/08/17 12:46 59 17 01/08/17 12:41 62 01/08/17 12:31 118/75 01/08/17 12:30 96 Room Air 01/08/17 12:15 72 01/08/17 12:11 62 20 01/08/17 12:06 63 22 01/08/17 12:01 126/77 01/08/17 11:36 64 01/08/17 11:31 116/70 01/08/17 11:06 66 18 01/08/17 11:01 137/77 01/08/17 10:36 63 15 01/08/17 10:06 57 16 96 01/08/17 10:01 118/69 01/08/17 10:00 58 15 96 01/08/17 09:31 122/74 01/08/17 09:30 60 13 97 Gen.: Patient is alert and sitting in bed, in no acute distress. HEENT: Normocephalic /atraumatic, no scleral icterus Heart: Regular rate and rhythm Extremities: No gross deformities or rashes noted Neurological examination: Mental status: Patient is alert and oriented x3. Attention and concentration normal for the situation. Good fund of knowledge. Able to give his own history. Speech is fluent without any dysarthria or aphasia noted Cranial nerve: Funduscopic examination was difficult to view. No papilledema. Pupils equally round and reactive to light. Extraocular muscles intact without nystagmus. No facial asymmetry noted. Facial sensation intact. Tongue is midline. Good palatal elevation. Good shoulder shrug bilaterally. Hearing grossly intact to voice. Strength: 5/5 both proximal and distally in all extremities. There is no arm drift. Tone is normal. Sensation: Grossly intact to light touch in all extremities. Deep tendon reflexes: +1 in bilateral biceps, brachioradialis and +2 patellar. Coordination: Patient had good finger to nose without dysmetria Station within the bed was normal Laboratory Results Past 24 Hours: 01/09/17 06:45 Red Blood Count 4.92, Mean Corpuscular Volume 87.0, Mean Corpuscular Hemoglobin 28.7, Mean Corpuscular Hemoglobin Concent 32.9, Mean Platelet Volume 11.0, Neutrophils (%) (Auto) 62.6, Lymphocytes (%) (Auto) 22.3, Monocytes (%) (Auto) 12.3, Eosinophils (%) (Auto) 2.3, Basophils (%) (Auto) 0.3, Neutrophils # (Auto ) 4.02, Lymphocytes # (Auto) 1.43, Monocytes # (Auto) 0.79, Eosinophils # (Auto ) 0.15, Basophils # (Auto) 0.02 01/09/17 06:45 Test 01/08/17 18:31 01/09/17 01:35 01/09/17 06:45 Prothrombin Time 11.1 SECONDS (9.0-12.0) Prothromb Time International Ratio 1.0 (0.9-1.1) Activated Partial Thromboplast Time 27.2 SECONDS (21.0-31.0) Partial Thromboplastin Ratio 1.0 Total Creatine Kinase 273 U/L (39-308) Creatine Kinase MB 3.1 ng/ml (0.5-3.6) Creatine Kinase MB Ratio 1.1 (0-3.0) Troponin I < 0.015 ng/ml (0-0.045) White Blood Count 6.42 K/uL (4.8-10.8) Red Blood Count 4.92 M/uL (4.7-6.1) Hemoglobin 14.1 g/dL (14.0-18.0) Hematocrit 42.8 % (42-52) Mean Corpuscular Volume 87.0 fL (80-100) Mean Corpuscular Hemoglobin 28.7 pg (25-34) Mean Corpuscular Hemoglobin Concent 32.9 g/dl (32-36) Platelet Count 187 K/uL (130-400) Mean Platelet Volume 11.0 fL (7.4-10.4) Neutrophils (%) (Auto) 62.6 % Lymphocytes (%) (Auto) 22.3 % Monocytes (%) (Auto) 12.3 % Eosinophils (%) (Auto) 2.3 % Basophils (%) (Auto) 0.3 % Neutrophils # (Auto) 4.02 K/uL (1.4-6.5) Lymphocytes # (Auto) 1.43 K/uL (1.2-3.4) Monocytes # (Auto) 0.79 K/uL (0.11-0.59) Eosinophils # (Auto) 0.15 K/uL (0-0.5) Basophils # (Auto) 0.02 K/uL (0-0.2) RDW Standard Deviation 42.4 fL (36.4-46.3) RDW Coefficient of Variation 13.3 % (11.5-14.5) Immature Granulocyte % (Auto) 0.2 % Immature Granulocyte # (Auto) 0.01 K/uL (0.00-0.02) Anion Gap 4.0 mmol/L (3-11) Est Creatinine Clear Calc Drug Dose 83.2 ml/min Estimated GFR () 81.2 Estimated GFR (Non- 70.1 BUN/Creatinine Ratio 12.4 (10-20) Calcium Level 9.1 mg/dl (8.5-10.1) Triglycerides Level 115 mg/dl (0-150) Cholesterol Level 199 mg/dl (0-200) HDL Cholesterol 57 mg/dl LDL Cholesterol, Calculated 119 mg/dl VLDL Cholesterol, Calculated 23 mg/dl Cholesterol/HDL Ratio 3.5 Imaging As noted above in history of present illness Impression This is a 51-year-old male who presents with episodes of dizziness provoked by position changes. Differential diagnosis includes orthostatic hypotension versus inner ear vestibular dysfunction. Symptoms seem less likely to be cardiogenic. No signs or symptoms concerning for stroke, TIA, or seizures. MRI of the brain is also negative for stroke. Plan Recommendations to the patient to keep well hydrated. Change positions slowly. If continues to have dizziness with position changes, would recommend referral and treatment with physical therapy for vestibular retraining. Follow-up with cardiology as indicated. Agree with tilt table testing. No additional neurological recommendations at this time. Think you for allowing me to participate in this patient's care. If there is any questions or concerns , feel free to call/patient.
[2017-01-09 13:15] VITALS: BP 119/73; PULSE 67; TEMP 36.6; O2SAT 95
--- NOTE | 2017-01-09 14:06 | Discharge Instructions ---
Discharge Instructions Date of Service Jan 09, 2017. Admission Reason for Admission: Dizziness Discharge Discharge Diagnosis / Problem: Dizziness Discharge Goals Goal(s): Improve function Activity Recommendations Activity Limitations: resume your previous activity . Instructions / Follow-Up Instructions / Follow-Up Follow with primary care physician in 1 week Cardiology in 1 month Current Hospital Diet Patient's current hospital diet: Regular Diet Discharge Diet Recommended Diet: Regular Diet Pending Studies Studies pending at discharge: no Laboratory Results Hemoglobin A1c Test 01/08/17 08:20 Range/Units Estimated Average Glucose 126 mg/dl Hemoglobin A1c 6.0 H 4.5-5.6 % Lipid Panel Test 01/09/17 06:45 Range/Units Triglycerides Level 115 0-150 mg/dl Cholesterol Level 199 0-200 mg/dl HDL Cholesterol 57 mg/dl Cholesterol/HDL Ratio 3.5 LDL Cholesterol, Calculated 119 mg/dl Medical Emergencies . Who to Call and When: Medical Emergencies: If at any time you feel your situation is an emergency, please call 911 immediately. . Non-Emergent Contact Non-Emergency issues call your: Primary Care Provider . . "Provider Documentation" section prepared by Leonard Lepe. . VTE Core Measure Inpt VTE Proph given/why not?: SCD's
[2017-01-09 14:40] VITALS: BP 119/73; PULSE 67; TEMP 36.6; O2SAT 95
--- NOTE | 2017-01-09 17:14 | Procedure Note ---
Procedure Note Date of Service Jan 09, 2017. Procedure Note Procedure performed: Upright tilt table testing Staff account analyst: Indication: Orthostatic dizziness Procedure: The patient was informed of the risks benefits and alternatives to the intended procedure. He understood such an which proceed. He was taken to the electrophysiology suite where he was placed on the tilt table. The patient was secured into place and continuous monitoring with blood pressure, pulse oximetry and telemetry was initiated. Patient was tilted to 80 degrees. Hemodynamics were monitored until the conclusion of the test. At the conclusion of the test symptoms and hemodynamics were allowed returned to normal prior to discharge. The patient tolerated procedure well there are no immediate complications. Findings: Baseline hemodynamics included a blood pressure of 120/65 with a pulse of 61. With tilting there was only a mild rise in the pulse not meeting criteria for POTS. There is no significant derangement in the blood pressure. Final hemodynamics included a blood pressure of 130/71 with a pulse of 64 No symptoms reported during the test Impression: Normal head-up tilt table testing without symptoms. No evidence of cardioinhibitory, vasodepressor effect or POTS.
--- NOTE | 2017-01-23 05:58 | DISCHARGE SUMMARY ---
Please see dictated H and P for full details of his presentation. The patient is a 51-year-old with history of Dieulafoy's lesion bleed in 08/2015 requiring blood transfusions and endoscopic clipping who presented with a one day history of lightheadedness and dizziness, room spinning with standing and collapse to the ground on several occasions. 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 He did have an episode where he had trouble finding words. He felt very fatigued and came in for evaluation. Chest x-ray had no acute pulmonary process. CT of the head showed no intracranial findings that were abnormal. Hemoglobin was 14 and creatinine was 1.1. Echocardiogram was performed, it showed an EF of 55-60%, normal valvular structures. The patient was seen by Dr. Pilar Flowers. An MRI of the brain and MRA of the head, both studies were unremarkable. Diagnosis was orthostatic hypotension versus inner ear vestibular dysfunction, no signs or TIA or seizure. Recommendations were to keep the patient well hydrated and referral for physical therapy for vestibular retraining. Cardiology performed a tilt table test which was unremarkable. No evidence of cardioinhibitory vasodepressor effect or POTS. The patient was discharged to home in stable condition and to follow up with his primary care doctor in 1 week. Time spent in review of the chart, discussion with the patient on the date of discharge was 31 minutes.
== END 2017-01-09 15:00 | disposition home or self-care (01) ==
LOC: C.EDB 08:02 → C.2T 12:32 → ENRESERV 13:35
PROVIDERS: ADMIT Family Medicine; ATTEND Family Medicine
DX: R42 Dizziness and giddiness (principal); Z87.19 Personal history of other diseases of the digestive system; Z83.3 Family history of diabetes mellitus; Z82.49 Family history of ischemic heart disease and other diseases of the circulatory system

== ENCOUNTER 2017-07-10 11:31 | Emergency (ER) | payer BC, OTHER ==
[~2017-07-10] VITALS: Ht 185.4 cm; Wt 83.2 kg
[2017-07-10 11:36] VITALS: Ht 185.4 cm; Wt 83.2 kg
[2017-07-10] MEDS ORDERED: KETOROLAC TROMETHAMINE 30 MG/ML VIAL IV STA (12:16)
[2017-07-10] MEDS ORDERED: SODIUM CHLORIDE 0.9% 1000ML 1,000 ML IV STA (12:16)
--- NOTE | 2017-07-10 12:17 | EMERGENCY ROOM VISIT NOTE ---
History Report prepared by Cem: Jessica Cleary Under the Supervision of: Dr. Divine Pratt M.D. First contact with patient: 11:53 Chief Complaint: FLU LIKE SX Stated Complaint: SWOLLEN THROAT, FEVER History of Present Illness The patient is a 51 year old male who presents to the Emergency Room with complaints of flu-like symptoms beginning 2 days ago. Per his family, the patient's throat has also been swollen and he has been febrile. Pt is having difficulty swallowing and opening his mouth. His family states that the patient had diarrhea at 0900 this morning. The patient states that he is not a smoker. Source of History: patient, family Onset: 2 days ago Position: other (global) Quality: other (flu-like symptoms ) Timing: constant Associated Symptoms: + fevers, + sorethroat (swollen throat), + diarrhea Review of Systems See HPI for pertinent positives & negatives. A total of 10 systems reviewed and were otherwise negative. Past Medical & Surgical Medical Problems: (1) Anemia (2) Dieulafoy lesion of stomach (3) Dizziness (4) Penicillin allergy (5) Rash (6) Shortness of breath Family History FH: HTN (hypertension) FH: diabetes mellitus FHx: prostate cancer Social History Smoking Status: Never Smoker Drug Use: none Marital Status: in relationship Housing Status: lives with family Occupation Status: employed Current/Historical Medications Scheduled Cephalexin Monohydrate (Keflex), 500 MG PO QID Phenylephrine-Chlorpheniramine (Joyce-Chester Plus Cold &), 2 CAP PO 0900 Allergies Coded Allergies: Penicillins (Verified Allergy, Unknown, HAPPENED AT CHILD, 07/10/17) Physical Exam Vital Signs Date Time Temp Pulse Resp B/P (MAP) Pulse Ox O2 Delivery O2 Flow Rate FiO2 07/10/17 14:48 72 18 131/77 95 07/10/17 12:57 37.3 70 18 133/71 99 Room Air 07/10/17 12:18 70 07/10/17 11:36 36.8 82 18 152/92 97 Room Air Physical Exam Vital signs reviewed. General: Well-appearing male, in no significant distress. HEENT: No scleral icterus, PERRLA, neck supple. Difficulty with opening his mouth. Poor dentition. Question mild trismus. Atraumatic. Cardiovascular: Regular rate and rhythm, no extra sounds. Pulmonary: Clear to auscultation bilaterally, normal work of breathing. Abdomen: Soft, nontender, nondistended, positive bowel sounds. Musculoskeletal: Atraumatic, no peripheral edema. Neurologic: Patient awake alert and oriented x 3, full strength in all 4 extremities. Cranial nerves 2 through 12 grossly intact. Skin: Warm, dry, no rash Medical Decision & Procedures Laboratory Results 07/10/17 12:42 Red Blood Count 4.86, Mean Corpuscular Volume 86.0, Mean Corpuscular Hemoglobin 29.0, Mean Corpuscular Hemoglobin Concent 33.7, Mean Platelet Volume 10.4, Neutrophils (%) (Auto) 75.2, Lymphocytes (%) (Auto) 14.1, Monocytes (%) (Auto) 10.5, Eosinophils (%) (Auto) 0.0, Basophils (%) (Auto) 0.1, Neutrophils # (Auto ) 6.20, Lymphocytes # (Auto) 1.16, Monocytes # (Auto) 0.87, Eosinophils # (Auto ) 0.00, Basophils # (Auto) 0.01 07/10/17 12:42 Test 07/10/17 12:37 07/10/17 12:42 Influenza Type A Antigen Neg for Influ A (NEG) Influenza Type B Antigen Neg for Influ B (NEG) White Blood Count 8.25 K/uL (4.8-10.8) Red Blood Count 4.86 M/uL (4.7-6.1) Hemoglobin 14.1 g/dL (14.0-18.0) Hematocrit 41.8 % (42-52) Mean Corpuscular Volume 86.0 fL (80-100) Mean Corpuscular Hemoglobin 29.0 pg (25-34) Mean Corpuscular Hemoglobin Concent 33.7 g/dl (32-36) Platelet Count 158 K/uL (130-400) Mean Platelet Volume 10.4 fL (7.4-10.4) Neutrophils (%) (Auto) 75.2 % Lymphocytes (%) (Auto) 14.1 % Monocytes (%) (Auto) 10.5 % Eosinophils (%) (Auto) 0.0 % Basophils (%) (Auto) 0.1 % Neutrophils # (Auto) 6.20 K/uL (1.4-6.5) Lymphocytes # (Auto) 1.16 K/uL (1.2-3.4) Monocytes # (Auto) 0.87 K/uL (0.11-0.59) Eosinophils # (Auto) 0.00 K/uL (0-0.5) Basophils # (Auto) 0.01 K/uL (0-0.2) RDW Standard Deviation 41.0 fL (36.4-46.3) RDW Coefficient of Variation 13.1 % (11.5-14.5) Immature Granulocyte % (Auto) 0.1 % Immature Granulocyte # (Auto) 0.01 K/uL (0.00-0.02) Anion Gap 5.0 mmol/L (3-11) Est Creatinine Clear Calc Drug Dose 96.0 ml/min Estimated GFR () 96.6 Estimated GFR (Non- 83.3 BUN/Creatinine Ratio 9.1 (10-20) Calcium Level 8.9 mg/dl (8.5-10.1) Laboratory results per my review. Medications Administered Medications (Trade) Dose Ordered Sig/Peewee Route Start Time Stop Time Status Last Admin Dose Admin Ketorolac Tromethamine (Toradol Inj) 30 mg NOW STAT IV 07/10/17 12:16 07/10/17 12:18 DC 07/10/17 12:57 30 MG Sodium Chloride 1,000 ml @ 999 mls/hr Q1H1M STAT IV 07/10/17 12:16 07/10/17 13:16 DC 07/10/17 12:53 999 MLS/HR ED Course 1211: Past medical records reviewed. The patient was evaluated in room A9B. A complete history and physical examination was performed. 1216: Ordered Sodium Chloride 1,000 ml @ 999 mls/hr IV, Toradol Inj 30 mg IV. 1435: Upon reevaluation, the patient appeared to have improvement of his symptoms. I discussed findings with him. He verbalized agreement of the treatment plan. He was discharged home. Medical Decision Differential diagnosis: Etiologies such as viral syndrome, tonsillitis, streptococcal pharyngitis, mononucleosis, peritonsillar abscess, retropharyngeal abscess, otitis, pneumonia , influenza, as well as others were entertained. This pt was evaluated and appeared to be in no distress. Pt is having difficulty opening his mouth fully, a swollen posterior oropharynx is seen, no asymmetry. Rapid strep is negative, however the presentation is c/w strep. There is a characteristic odor on the breath. Pt is PCN allergic and self-pay. He was placed on keflex 500 mg four times daily for 10 days. Pt will f.u with PCP and return to the ED for worsening of symptoms or any medical concerns. Medication Reconcilliation Current Medication List: was personally reviewed by me Blood Pressure Screening Patient's blood pressure: Elevated blood pressure Blood pressure disposition: Elevated BP felt to be situational Impression Primary Impression: Pharyngitis Scribe Attestation The scribe's documentation has been prepared under my direction and personally reviewed by me in its entirety. I confirm that the note above accurately reflects all work, treatment, procedures, and medical decision making performed by me. Departure Information Dispostion Home / Self-Care Prescriptions Cephalexin Monohydrate (Keflex) 500 Mg Cap 500 MG PO QID for 10 Days, #40 CAP Prov: Divine Pratt M.D. 07/10/17 Referrals Cassidy Durant M.D. (PCP) Brooklynn Martinez D.O. Forms HOME CARE DOCUMENTATION FORM, IMPORTANT VISIT INFORMATION Patient Instructions My [facility] Additional Instructions Diagnosis: Pharyngitis Kelfex 500 mg 4 times daily for 10 days. Tylenol 650 mg every 6 hours as needed for pain or fever. Ibuprofen 600 mg every 6 hours as needed for pain or fever with food. Drink plenty of clear fluids. Follow-up with your physician for reevaluation this week. Return to the ER for worsening of symptoms or any medical concerns.
[2017-07-10 12:57] VITALS: TEMP 37.3
[2017-07-10 12:57] LABS: BASO % 0.1 %; BASO ABS # 0.01 K/uL (0-0.2); HEMATOCRIT 41.8 % (42-52); HEMOGLOBIN 14.1 g/dL (14.0-18.0); IG# 0.01 K/uL (0.00-0.02); LYMPH % 14.1 %; LYMPH ABS # 1.16 K/uL (1.2-3.4); MEAN CORPUSCULAR HGB CONC 33.7 g/dl (32-36); MEAN PLATELET VOLUME 10.4 fL (7.4-10.4); MONO % 10.5 %; MONO ABS # 0.87 K/uL (0.11-0.59); NEUT % 75.2 %; PLATELET COUNT 158 K/uL (130-400); RED CELL DISTRIBUTION WIDTH CV 13.1 % (11.5-14.5); WHITE BLOOD COUNT 8.25 K/uL (4.8-10.8)
[2017-07-10 13:09] LABS: INFLUENZA B ANTIGEN Neg for Influ B (NEG)
[2017-07-10 13:14] LABS: CALCIUM 8.9 mg/dl (8.5-10.1); CREATININE 1.04 mg/dl (0.60-1.40); POTASSIUM 3.8 mmol/L (3.5-5.1)
[2017-07-10] MEDS ORDERED: PHEN1CAP5 PO (13:58)
[2017-07-10] MEDS ORDERED: CEPH500C PO (14:27)
[2017-07-10 14:48] VITALS: BP 131/77; PULSE 72; O2SAT 95
== END 2017-07-10 14:47 | disposition home or self-care (01) ==
LOC: C.EDB 11:32 → C.EDA 14:47
DX: J02.9 Acute pharyngitis, unspecified (principal); Z82.49 Family history of ischemic heart disease and other diseases of the circulatory system; Z83.3 Family history of diabetes mellitus; Z80.42 Family history of malignant neoplasm of prostate

== ENCOUNTER 2018-11-14 18:25 | Observation (INO) ==
--- OUTSIDE RECORDS SUMMARY | 2018-11-14 18:29 | External Medical Summary | Continuity of Care Document ---
:1965 Author Name [employer] M.D. Address Unavailable Unavailable , Care Team Providers Name Role Phone Unavailable Unavailable Unavailable PCP, UNKNOWN Unavailable Unavailable Problems Dizziness (780.4) (R42) Dieulafoy lesion of stomach (537.84) (K31.82) Allergies and Adverse Reactions Penicillins (Allergy) Medications No Reported Medications , M.D. Refills: 0 Procedures History of lumbar discectomy Status: Com pleted Immunizations Immunizations not documented Family History Father Family history of hypertension (V17.49) (Z82.49) Status: Act dunia Family history of prostate cancer (V16.42) (Z80.42) Status: Active Family history of diabetes mellitus (V18.0) (Z83.3) Status: Active Family history of myocardial infarction (V17.3) (Z82.49) Sta tus: Active Family history of cardiac pacemaker (V17.49) (Z82.49) Status : Active Sister Family history of diabetes mellitus (V18.0) (Z83.3) Status: Active Mother Family history of malignant neoplasm of brain (V16.8) (Z80.8 ) Status: Active Social History - Smoking Status Never smoker Plan of Treatment Planned Observations Planned Goals not documented Results No Known Results Results not documented
[2018-11-14] MEDS ORDERED: SODIUM CHLORIDE 0.9% 1000ML 1,000 ML IV ONE (18:44)
[2018-11-14] MEDS ORDERED: LORazepam 1 ML IM STA (18:54)
[2018-11-14 19:01] LABS: Basophils # (auto) 0.02 K/uL (0-0.2); Basophils % (auto) 0.2 %; Eosinophils % (auto) 0.9 %; Hematocrit (blood only) 38.6 % (42-52); Hemoglobin 12.8 g/dL (14.0-18.0); Immature Granulocytes # (auto) 0.02 K/uL (0.00-0.02); Immature Granulocytes % (auto) 0.2 %; Lymphocytes # (auto) 3.33 K/uL (1.2-3.4); Lymphocytes % (auto) 28.7 %; Mean Corpuscular Hgb Conc 33.2 g/dL (32-36); Mean Corpuscular Volume 86.2 fL (80-100); Mean Platelet Volume 11.1 fL (7.4-10.4); Monocytes % (auto) 7.8 %; Neutrophils # (auto) 7.24 K/uL (1.4-6.5); Neutrophils % (auto) 62.2 %; Platelet Count 256 K/uL (130-400); RDW Coefficient of Variation 13.3 % (11.5-14.5); RDW Standard Deviation 42.2 fL (36.4-46.3); Red Blood Count 4.48 M/uL (4.7-6.1); White Blood Count 11.61 K/uL (4.8-10.8)
[2018-11-14 19:10] LABS: iSTAT Creatinine 1.2 mg/dl (0.6-1.3); iSTAT Hemoglobin 12.9 g/dl (14.0-18.0); iSTAT Ionized Calcium 1.15 mmol/l (1.12-1.32); iSTAT Potassium 3.2 mEq/L (3.3-5.0)
[2018-11-14 19:22] LABS: Alanine Aminotransferase 38 U/L (12-78); Albumin Level 3.3 gm/dl (3.4-5.0); Aspartate Aminotransferase 34 U/L (15-37); BUN Creatinine Ratio 10.8 (10-20); Blood Urea Nitrogen 14 mg/dl (7-18); Calcium 8.9 mg/dl (8.5-10.1); Carbon Dioxide 25 mmol/L (21-32); Chloride 105 mmol/L (98-107); Est GFR (African American) 72.7; Est GFR (Non-African American) 62.7; Glucose 250 mg/dl (70-99); Potassium 3.4 mmol/L (3.5-5.1); Sodium 140 mmol/L (136-145)
[2018-11-14 19:23] LABS: Acetaminophen < 2 ug/ml (10-30); Salicylate < 1.7 mg/dl (2.8-20)
[2018-11-14 19:25] LABS: Albumin Globulin Ratio 1.1 (0.9-2); Alkaline Phosphatase 59 U/L (45-117); Bilirubin,Total 0.5 mg/dl (0.2-1); Creatine Kinase 486 U/L (39-308); Globulin 2.9 gm/dl (2.5-4.0); Total Protein 6.2 gm/dl (6.4-8.2)
--- NOTE | 2018-11-14 20:30 | CT Scan Report ---
CT head/brain wo con CT DOSE: 996.65 mGy.cm HISTORY: Mental status change AMS eval for bleed TECHNIQUE: Multiaxial CT images of the head were performed without the use of intravenous contrast. A dose lowering technique was utilized adhering to the principles of ALARA. Comparison: None. Findings: The paranasal sinuses and mastoid air cells are clear. The calvarium and skull base are int act. The ventricles and sulci are within normal limits. There is no mass, hematoma, midline shift, or acute infarct. Impression: No acute intracranial abnormality. The above report was generated using voice recognition software. It may contain grammatical, syntax or spelling errors. Electronically signed by: James Conrad M.D. 11/14/2018 8:29 PM
[2018-11-14 21:08] LABS: Amphetamines+Metham, Urine Neg (Neg); Barbiturates, Urine Neg (Neg); Benzodiazepine, Urine Neg (Neg); Cocaine, Urine Neg (Neg); MDMA (Ecstacy), Urine Neg (Neg); Methadone, Urine Neg (Neg); Opiate, Urine Neg (Neg); Phencyclidine, Urine Neg (Neg)
--- NOTE | 2018-11-14 22:06 | CT Scan Report ---
CT abd pelvis wo con CT DOSE: 295.34 mGy.cm HISTORY: Pain abd pain TECHNIQUE: Multiaxial CT images of the abdomen and pelvis were performed without contrast. A dose lo wering technique was utilized adhering to the principles of ALARA. COMPARISON STUDY: None. FINDINGS: Lung bases are clear. Overall configuration of liver spleen and pancreas appear unremarkabl e. Kidneys negative for calcification or hydronephrosis. There are findings of moderate wall edematous change throughout all major components of the colon. Th ere is superimposed chronic diverticulosis of the sigmoid. No evidence for obstruction mass or collection. No evidence for abscess. IMPRESSION: 1. Nonspecific generalized colitis. 2. Superimposed chronic sigmoid diverticulosis. 3. No evidence for abscess collection or obstruction. The above report was generated using voice recognition software. It may contain grammatical, syntax or spelling errors. Electronically signed by: James Conrad M.D. 11/14/2018 10:04 PM
[2018-11-14] MEDS ORDERED: POTASSIUM CHLORIDE 20 MEQ TABCR PO STA (22:28)
[2018-11-14] MEDS ORDERED: LACTATED RINGER'S 1,000 ML IV ONE (22:28)
[2018-11-14 23:03] LABS: Partial Thromboplastin Ratio 0.8; Partial Thromboplastin Time 21.4 Seconds (21.0-31.0)
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
[2018-11-15] MEDS ORDERED: OPTIRAY 320 125ml IV PRN (00:22)
[2018-11-15] MEDS ORDERED: TRAMADOL HCL 50 MG TABLET PO PRN (00:39)
[2018-11-15] MEDS ORDERED: ACETAMINOPHEN 325 MG TAB PO PRN (00:39)
[2018-11-15] MEDS ORDERED: PROMETHAZINE HCL 12.5 MG in SODIUM CHLORIDE 0.9% 50 ML IV PRN (00:39)
[2018-11-15] MEDS ORDERED: LACTATED RINGER'S 1,000 ML IV ONE (01:30)
[2018-11-15] MEDS ORDERED: POTASSIUM CHLORIDE 20 MEQ TABCR PO STA (05:38)
[2018-11-15 05:55] LABS: Basophils # (auto) 0.01 K/uL (0-0.2); Basophils % (auto) 0.1 %; Eosinophils # (auto) 0.05 K/uL (0-0.5); Eosinophils % (auto) 0.7 %; Hematocrit (blood only) 34.9 % (42-52); Hemoglobin 11.7 g/dL (14.0-18.0); Immature Granulocytes # (auto) 0.02 K/uL (0.00-0.02); Immature Granulocytes % (auto) 0.3 %; Lymphocytes # (auto) 1.43 K/uL (1.2-3.4); Mean Corpuscular Hgb Conc 33.5 g/dL (32-36); Mean Corpuscular Volume 86.4 fL (80-100); Mean Platelet Volume 10.3 fL (7.4-10.4); Monocytes % (auto) 8.4 %; Neutrophils # (auto) 5.04 K/uL (1.4-6.5); Neutrophils % (auto) 70.5 %; Platelet Count 172 K/uL (130-400); RDW Coefficient of Variation 13.4 % (11.5-14.5); RDW Standard Deviation 42.4 fL (36.4-46.3); Red Blood Count 4.04 M/uL (4.7-6.1); Reticulocyte % 0.8 % (0.5-2.0); Reticulocytes # 0.03 10^6/uL (0.02-0.10); White Blood Count 7.15 K/uL (4.8-10.8)
[2018-11-15 06:05] LABS: INR 1.1 (0.9-1.1)
[2018-11-15 06:26] LABS: Appearance Urine Clear (Clear); Bilirubin Urine Negative (Negative); Blood Urine Negative (Negative); Color Urine Yellow; Glucose Urine UA Negative (Negative); Ketones Urine Negative (Negative); Leukocyte Esterase Urine Negative (Negative); Nitrite Urine Negative (Negative); Protein Urine Negative (Negative); Specific Gravity Urine > 1.045 (1.000-1.030); Urobilinogen Urine Negative (Negative); pH Urine 6.5 (4.5-7.5)
[2018-11-15 06:33] LABS: BUN Creatinine Ratio 11.2 (10-20); Blood Urea Nitrogen 10 mg/dl (7-18); Calcium 8.6 mg/dl (8.5-10.1); Carbon Dioxide 29 mmol/L (21-32); Chloride 108 mmol/L (98-107); Creatinine Clr Calc Pharmacy 99.3 ml/min; Est GFR (African American) 113.9; Est GFR (Non-African American) 98.3; Glucose 97 mg/dl (70-99); Potassium 3.8 mmol/L (3.5-5.1); Sodium 142 mmol/L (136-145)
[2018-11-15 06:42] LABS: Creatine Kinase 356 U/L (39-308); Ferritin 38.4 ng/ml (8-388); Iron 59 mcg/dl (35-175); Transferrin 210 mg/dl (200-360); Troponin I < 0.015 ng/ml (0-0.045)
--- NOTE | 2018-11-15 07:09 | Ultrasound Report ---
BILATERAL LOWER EXTREMITY VENOUS DOPPLER HISTORY: Bilateral leg pain COMPARISON STUDY: None. FINDINGS: There is normal compressibility, flow, and augmentation within the bilateral lower extremit y deep venous systems. IMPRESSION: No DVT within the right or left lower extremity. Electronically signed by: Rio Lugo M.D. 11/15/2018 7:08 AM
--- NOTE | 2018-11-15 07:34 | CT Scan Report ---
CHEST CTA for PULMONARY ARTERIES CT DOSE: 300.77 mGy.cm HISTORY: Atypical chest pain. TECHNIQUE: Multiaxial CT images of the chest were performed following the intravenous administration of contrast to evaluate the pulmonary arteries. Maximal intensity projection images were also obtaine d. A dose lowering technique was utilized adhering to the principles of ALARA. COMPARISON STUDY: None. FINDINGS: Chronic compression deformity at T12. No pleural or pericardial effusions. No evidence for an aortic dissection or pulmonary embolus. The visualized liver and spleen are unremarkable. No media stinal or hilar lymphadenopathy. No fractures within the visualized osseous structures. Scar versus i rregular lesion within the right lung apex measuring 8 mm. This is best in image 252. No pneumothorax . Groundglass densities within the lung bases favor mild dependent change. Otherwise, no focal lung c onsolidations to suggest pneumonia. IMPRESSION: 1. No evidence for pulmonary embolus. 2. An 8 mm spiculated lesion versus scar within the right lung apex. Recommend [address] follo w-up to ensure stability. Electronically signed by: Rio Lugo M.D. 11/15/2018 7:33 AM
[2018-11-15 08:24] LABS: Folate (Folic Acid) 14.17 ng/ml (>5.38)
[2018-11-15] MEDS ORDERED: ENOXAPARIN INJ 40 MG/0.4 ML SYR SQ SCH (09:00)
[2018-11-15 11:51] LABS: Hematocrit (blood only) 35.1 % (42-52); Hemoglobin 11.8 g/dL (14.0-18.0)
[2018-11-16 05:57] LABS: Estimated Average Glucose 131 mg/dl; Hemoglobin A1C 6.2 % (4.5-5.6)
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
== END 2018-11-15 17:04 | disposition home or self-care (01) ==
LOC: ED 18:25 → 2N 18:25